=== PATIENT | female | born 1970 | race Caucasian/White ===

== ENCOUNTER → 2020-06-06 08:49 | Outpatient (CLI) | payer OTHER, SELFPAY ==
--- NOTE | ~2020-06-06 | CT_ITS ---
EXAMINATION: CT sinus wo con DATE: 06/06/2020 09:10 INDICATION: Sinus congestion TECHNIQUE: Computed tomography (CT) of the paranasal sinuses was performed without contrast. Iterativ e reconstruction technique was employed. Exam dose: 300.36 mGy-cm total exam DLP. COMPARISON: None FINDINGS: There is prominent rightward bowing of the nasal septum. There is soft tissue swelling of the nasal turbinates. The ostiomeatal units are patent bilaterally. The paranasal sinuses are normally developed and aerate d. The mastoid air cells are normally developed and aerated. Middle and inner ear apparatus appear un remarkable bilaterally. IMPRESSION: Prominent rightward bowing of nasal septum Patent ostiomeatal units, paranasal sinuses and mastoid air cells Reviewed, dictated and finalized at [facility]. Reviewed, dictated and finalized at [facility].
== END ==
DX: R09.81 Nasal congestion (principal); J34.2 Deviated nasal septum
CPT/HCPCS: 70486

== ENCOUNTER → 2021-03-21 07:47 | Outpatient (CLI) | payer OTHER, SELFPAY ==
--- NOTE | ~2021-03-21 | MM_ITS ---
EXAMINATION: MM screening ángel BI w carolyn HISTORY: Screening TECHNIQUE: Craniocaudal and mediolateral oblique 3-D tomosynthesis images were obtained and synthetic 2-D images were generated. CAD analysis was submitted and interpreted. COMPARISON: No prior mammogram is available for comparison at this institution. BREAST PARENCHYMAL COMPOSITION: The breasts are extremely dense, which lowers the sensitivity of mamm ography. FINDINGS: There is no evidence of suspicious mass, calcification, or architectural distortion to sugg est malignancy in either breast. There has been no suspicious interval change. IMPRESSION: 1. No mammographic evidence of malignancy. 2. Recommend routine screening mammography in one year. BI-RADS Category 1: Negative Reviewed, dictated and finalized at location [facility].
== END ==
PROVIDERS: Visit Provider Nurse Practitioner Obstetrics & Gynecology
DX: Z12.31 Encounter for screening mammogram for malignant neoplasm of breast (principal)
CPT/HCPCS: 77063; 77067

== ENCOUNTER 2024-07-13 01:20 | Day surgery (SDC) | payer OTHER, SELFPAY ==
--- NOTE | 2024-07-05 09:48 | PC.NURSE ---
Addendum entered by Pam Rosenthal RN 07/05/24 10:06: PATIENT STATES SHE USES A COMPOUNDED TESTOSTERONE CREAM FROM [facility], BUT IS UNSURE OF DOSAGE. NURSE CALLED TO [facility]. UNABLE TO ADD MEDICATION TO MED LIST. TESTOSTERONE 5% CREAM.\ APPLY 5MG (FOR A TOTAL OF 10MG) TO EACH INNER THIGH [id number]. Original Note: Report to the Outpatient Waiting Room, entrance under the green pavilion located off [facility], at time __1230PM on date [id number]__. Planned Procedure Time: ___1430 . Time changes happen often and if your time is changed the preop area will call you the afternoon before. - You and your visitor will be asked to self-screen and do not enter if you have any COVID symptoms. - A mask is optional within the hospital at this time. Patients may have clear liquids (water, carbonated beverages, clear teas, apple juice) until 3 hours prior to surgery with a maximum of 20 ounces. STOP AT 1130AM. - No food from midnight until time of surgery - Take the following medications with a SIP of water the morning of surgery: ___Bijuva DO NOT STOP ANY OF YOUR OTHER PRESCRIPTION MEDICATIONS PRIOR TO SURGERY ?EXCEPT THE FOLLOWING: STOP TAKING YOUR VITAMINS/SUPPLEMENTS X3 DAYS PRIOR TO SURGERY. Medications to discontinue per physician CALCIUM D, FISH OIL, B COMPLEX Date to take last qols____[phone] Please no make-up, nail kuwaiti, hairspray, perfume, deodorant, or body powder the day of surgery. No jewelry (including any body piercings) or valuables the day of surgery, leave them at home. Please take a shower or bath the night before, or the morning of, surgery with an antibacterial soap. Wear comfortable, loose fitting clothing. - Jewelry must be removed prior to entering the operating room. Rings and piercings that are not removed may be cut off. - The hospital will not accept responsibility for valuables. - Please leave all valuables, including medications, at home the day of surgery. If you are going home after surgery, a licensed auto parts delivery driver must drive you home. - NO public transportation without another adult if you receive anesthesia. - We recommend that an adult stay with you for 24 hours following discharge. - We also recommend that you do not drive, make important decision, drink alcoholic beverages, or take any drugs that were not prescribed by your health care provider for at least 24 hours after your discharge time. Follow any additional instructions given to you from your surgeon. If you or anyone in your household have experienced Covid symptoms in the past week, please notify your surgeon or the nurse liaison at the phone number below for possible testing. Telephone instructions given to __PATIENT (PAT) and asked if any additional questions and then verbalized understanding. Patient advised to call surgeon office or pre surgery nurse liaison [phone] if any additional questions.
[2024-07-05 10:08] VITALS: BMI 20.9
[2024-07-13] MEDS: LACTATED RINGERS 1,000 ML 30 ML IV CONT (13:43)
[2024-07-13] MEDS: ACETAMINOPHEN 500 MG TABLET 1000 MG PO (13:43)
[2024-07-13 13:45] VITALS: BP 113/52; PULSE 63; RESP 16; TEMP 36.1; O2SAT 100
--- NOTE | 2024-07-13 14:32 | WPDANESEPPF ---
Anes - Initial Pre Proc Eval Procedure: Operation Date: 07/13/24 14:30 Proposed Procedures p Hysteroscopy with Biopsy of Endometrium and/or Polypectomy - Rehan Menchaca MD Date/Time: 07/13/24 14:32 Surgeon: Rehan Menchaca MD Pre Op Diagnosis: endometrial polyp Patient Data Age: 53 Gender: F Height: 1.57 m Weight: 55.1 kg Last Vital Signs Temp 96.9 F L 07/13/24 13:45 Pulse 63 07/13/24 13:45 Resp 16 07/13/24 13:45 BP 113/52 L 07/13/24 13:45 Pulse Ox 100 07/13/24 13:45 O2 Del Method Room Air 07/13/24 13:45 Allergies Allergy/AdvReac Type Severity Reaction Status Date / Time cinnamon Allergy Intermediate Other Verified 07/13/24 13:42 Home Medications Medication Instructions Recorded Confirmed Type Alive Calcium-Vitamin D3 1 tab-cap DAILY 07/05/24 07/13/24 History estradiol 1 mg-progesterone 100 mg 1 cap PO DAILY 07/05/24 07/13/24 History capsule (Bijuva) omega-3 fatty acids 1 cap PO DAILY 07/05/24 07/13/24 History vitamin B complex 1 cap DAILY 07/05/24 07/13/24 History Patient hx anesthesia problems: none Family hx anesthesia problems: none Results Review: All pre-operative results and documents have been reviewed as part of the pre-operative evaluation. [facility] Social History Social History Smoking status: Never smoker Second hand tobacco smoke exposure: Yes (as a child) Alcohol intake: current Drinks per week: 2 Substance use: never Substance use type: does not use Living arrangements: with family Spiritual care concerns: No Anes - Eval Final PreProcedure Day of Procedure 07/13/24 14:32 Patient weight: normal Heart: regular rate and rhythm Lungs: clear to auscultation Airway: Mallampati scale class II Neurological: alert and oriented Last oral intake: >/= 8 hours ASA classification: I Emergent: no Anesthetic plan: proceed Anesthesia type and monitoring: general GIVS and standard monitoring Results Review: All pre-operative results and documents have been reviewed as part of the pre-operative evaluation. Pt very active, works out at gym, including this am, no cp or sob w cardio/wts. Informed Consent: The patient's anesthetic plan and its attendant risks and benefits were discussed with the patient/family/POA. Questions were solicited and answers provided to the satisfaction of the patient/family/POA.
--- NOTE | 2024-07-13 15:03 | PM.IMHP ---
H&P: HPI History of Present Illness Date/Time: 07/13/24 15:03 Chief Complaint: Postmenopausal bleeding Narrative: this patient is a 53-year-old female with postmenopausal bleeding. We have agreed to perform hysteroscopy D&C with possible polypectomy. The patient understands the details of the procedure. The procedure has been explained in detail. She understands the risks. She understands that injuries may occur that result in hospitalization, more surgery, and severe illness. She understands risk of hemorrhage and infection. She denies any chest pain or shortness of breath. She denies any nausea, vomiting, fever, chills. Review of Systems Review of Systems: All systems reviewed & are unremarkable except as noted in HPI and below Constitutional: Constitutional: Denies chills, Denies fatigue, Denies fever(s) and Denies weakness Eyes: Eyes: Denies blurry vision, Denies change in vision, Denies loss of peripheral vision, Denies loss of vision, Denies other visual disturbances and Denies eye pain ENT: Denies vertigo, Denies dizziness, Denies hearing loss, Denies mouth pain, Denies nasal obstruction, Denies neck mass and Denies neck pain Cardiovascular: Cardiovascular: Denies chest pain, Denies diaphoresis, Denies syncope, Denies leg edema and Denies dyspnea Respiratory: Respiratory: Denies chest congestion, Denies cough, Denies hemoptysis, Denies dyspnea and Denies wheezing Gastrointestinal: Gastrointestinal: Denies abdominal pain, Denies constipation, Denies diarrhea, Denies nausea and Denies vomiting Genitourinary: Genitourinary: Denies hematuria, Denies change in libido, Denies nocturia, Denies genital lesions, Denies flank pain and Denies urinary urgency Musculoskeletal: Musculoskeletal: Denies abnormal gait, Denies back pain, Denies myalgias, Denies arthralgias, Denies joint swelling, Denies muscle weakness and Denies neck pain Integumentary/Breasts: Skin/Breast: Denies swelling, Denies breast pain, Denies breast mass, Denies dry skin, Denies nipple discharge, Denies unusual bruising and Denies jaundice Neurologic: Denies Neuro-related abnormal movements, Denies Abnormal speech present, Denies abnormal gait, Denies behavioral changes, Denies confusion, Denies vertigo, Denies dizziness, Denies syncope, Denies loss of vision, Denies memory loss, Denies convulsions and Denies weakness Psychiatric: Psychiatric: Denies abnormal sleep pattern, Denies behavioral changes, Denies change in libido, Denies confusion, Denies depression, Denies anhedonia and Denies memory loss Endocrine: Endocrine: Reports no additional endocrine complaints, Denies change in libido and Denies fatigue Hematologic/Lymphatic: Hematologic/Lymphatic: Reports no additional hematologic/lymphatic complaints Allergic/Immunologic: Allergic/Immunologic: Reports no additional allergic/immunologic complaints and Denies wheezing PMFSH Social History Social History Smoking status: Never smoker Second hand tobacco smoke exposure: Yes (as a child) Alcohol intake: current Drinks per week: 2 Substance use: never Substance use type: does not use Living arrangements: with family Spiritual care concerns: No Meds Home Medications and Allergies Home Medications Medication Instructions Recorded Confirmed Type Alive Calcium-Vitamin D3 1 tab-cap DAILY 07/05/24 07/13/24 History estradiol 1 mg-progesterone 100 mg 1 cap PO DAILY 07/05/24 07/13/24 History capsule (Bijuva) omega-3 fatty acids 1 cap PO DAILY 07/05/24 07/13/24 History vitamin B complex 1 cap DAILY 07/05/24 07/13/24 History Allergies Allergy/AdvReac Type Severity Reaction Status Date / Time cinnamon Allergy Intermediate Other Verified 07/13/24 13:42 Vital Signs Vital Signs - 24 hr 07/13/24 13:45 Temperature 96.9 F L Pulse Rate 63 Respiratory Rate 16 Blood Pressure 113/52 L Pulse Oximetry 100 Oxygen Delivery Room Air Exam Const: General: cooperative, healthy
--- NOTE | 2024-07-13 15:05 | WPDHPUPDATE1 ---
History and Physical Update Update Date/Time: 07/13/24 15:05 History and Physical has been reviewed, including an updated exam of the patient. There are NO changes in the patient's condition. Risks, benefits, and alternatives have been discussed and questions answered. Patient agrees to proceed with procedure.
[2024-07-13] MEDS: LIDOCAINE HCL 1% LOCAL INJ 20 ML VIAL 10 ML INFILTRATE (15:28)
[2024-07-13 15:50] VITALS: BP 88/44; PULSE 68; RESP 12; O2SAT 98
[2024-07-13 16:00] VITALS: BP 96/55; PULSE 63; RESP 14; O2SAT 98
--- NOTE | 2024-07-13 16:01 | P.OP_ITS ---
Procedure Note - Detailed Date of Procedure 07/13/24 Pre-op Diagnosis endometrial polyp Post-op Diagnosis Same Procedure Performed Hysteroscopy D&C , polypectomy Surgeon Rehan Menchaca MD Anesthesia MAC Indications abnormal uterine bleeding Findings 1 cm endometrial polyp, normal vulva, vagina, cervix. Description of Procedure the patient was taken the operating room. She was prepped and draped in the d orsal lithotomy position after induction of mac anesthesia. A speculum was placed in the vagina. The cervix was grasped with a tenaculum. The cervix was dilated about 1 cm. The hysteroscope was inserted. The intrauterine cavity and endocervix were evaluated. Hysteroscope was withdrawn. A medium-size curette was used to curettage all the surfaces were within the endometrial cavity. the sample was collected on Telfa and sent to pathology. rotation blade was inserted and the endometrial polyp was resected. The hysteroscope was reinserted and the above findings were noted. Patient tolerated the procedure well. The speculum and tenaculum were removed. She was taken recovery room in stable condition. Sponge lap and needle counts were correct x2. Estimated Blood Loss 40 Drains No Packing No Pathology Yes Complications No immediate complications Condition Stable Disposition PACU
[2024-07-13 16:30] VITALS: BP 125/65; PULSE 60; RESP 14; O2SAT 98
[2024-07-13 17:00] VITALS: BP 129/67; PULSE 55; RESP 16
== END 2024-07-13 17:05 | disposition home or self-care (01) ==
PROVIDERS: Visit Provider Obstetrics & Gynecology
PROC: 0U5B8ZZ Destruction of Endometrium, Via Natural or Artificial Opening Endoscopic (ICD-10-PCS; CPT 58563; principal; 2024-07-13 14:30)
DX: N95.0 Postmenopausal bleeding (principal); N84.0 Polyp of corpus uteri
CPT/HCPCS: 58558; 88305; A9270; J1100; J1885; J2250; J2405; J2704; J3010; J7120